=== PATIENT | male | born 1990 | race American Indian/Alaskan Native ===

== ENCOUNTER 2019-11-07 16:43 | Emergency (ER) | payer SELFPAY ==
--- NOTE | 2019-11-07 17:46 | Emergency Department Report ---
Suture/Staple Removal - HPI Chief Complaint: Laceration/Recheck/Suture Stated Complaint: HEAD APPLE REMOVED/HEADACHES Time Seen by Provider: 11/07/19 17:19 When Sutures or [place] Placed: 8-10 Days Ago Wound Location: scalp ED Review of Systems ROS: Stated complaint: HEAD APPLE REMOVED/HEADACHES Other details as noted in HPI Comment: All other systems reviewed and negative ED Past Medical Hx - Past Medical History Previous Medical History?: No - Surgical History Past Surgical History?: No Suture Removal Exam - Exam General: Vital signs noted. No distress. Alert and acting appropriately. Wound: No Pathologic Erythema, No Tenderness, No Drainage, No Pus, No Wound Dehiscence Other Systems: All other systems reviewed and are unremarkable. ED Recheck MDM - Medical Decision Making 29-year-old male presents with staple removal of the scalp One staple was removed from scalp. Patient tolerated procedure without any problems. Discussed follow-up with primary care physician. Critical care attestation.: If time is entered above; I have spent that time in minutes in the direct care of this critically ill patient, excluding procedure time. ED Disposition Clinical Impression: Removal of staple Disposition: DC-01 TO HOME OR SELFCARE Is pt being admited?: No Does the pt Need Aspirin: No Condition: Stable Referrals: [facility] [Outside] - 3-5 Days [facility] [Outside] - 3-5 Days Forms: Accompanied Note, Work/School Release Form(ED) Time of Disposition: 17:46
[2019-11-07 17:47] VITALS: BP 119/69
== END 2019-11-07 18:05 | disposition home or self-care (01) ==
LOC: ED 16:43
DX: Z48.02 Encounter for removal of sutures (principal)